=== PATIENT | female | born 1980 | race Hispanic/Latino ===

== ENCOUNTER 2017-09-10 18:05 | Emergency (ER) | payer OTHER ==
[2017-09-10 18:34] LABS: Absolute Lymphocytes (CBC) 1.9 K/uL (0.7-4.9); Absolute Monocytes 0.6 K/uL (0.1-1.3); Absolute Neutrophil 5.1 K/uL (1.8-8.0); Basophils % 0.3 % (0-1.3); Eosinophils % 1.9 % (0-4.4); Hematocrit 29.6 % (36.0-45.0); Lymphocytes % 24.2 % (15.3-44.8); MCH 31.7 pg (27.0-35.0); MCV 91.2 fL (80-100); MPV 8.8 fL (7.6-11.3); Monocytes % 7.9 % (3.3-12.3); RBC Red Blood Cell Count 3.25 M/uL (3.86-4.86)
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
--- NOTE | 2017-09-10 18:40 | EDPHYS ---
Physician Documentation [facility] Name: Maritza Marcano Age: 37 yrs Sex: Female : 1980 Arrival Date: 09/10/2017 Time: 18:09 Bed 4 Private MD: out of town, doctor ED Physician Chapo Arellano HPI: 09/10 18:16 This 37 yrs old Female presents to ER via Unassigned with complaints of 19 sarahy weeks , heavy vaginal bleeding. 18:16 The patient presents with abdominal pain in the lower abdomen, abdominal distention in sarahy the lower abdomen. Onset: The symptoms/episode began/occurred just prior to arrival. The patient presents to the emergency department with vaginal bleeding, that is heavy. The estimated gestational age is 19 weeks. course: care: private OB physician. Previous pregnancies: in previous pregnancies patient has had vaginal delivery. Associated signs and symptoms: The patient has no apparent associated signs or symptoms. Associated signs and symptoms: none. METAL WELDER: 18:16 3, Full Term 2, Premature 0, 0, Living 0 sarahy 18:30 3, Full Term 3, Premature 0, 0, Living 3, Verified, Est Due sg Date January 2018 Historical: - Allergies: 18:30 No Known Allergies; sg - Home Meds: 18:30 Vitamin Oral [Active]; sg - PMHx: 18:30 None; sg - PSHx: 18:30 Tummy Tuck; sg - Immunization history:: Adult Immunizations up to date. - Social history:: Smoking status: Patient/guardian denies using tobacco. - Family history:: not pertinent. ROS: 18:16 Constitutional: Negative for fever, chills, and weight loss, Eyes: Negative for injury, sarahy pain, redness, and discharge, ENT: Negative for injury, pain, and discharge, Neck: Negative for injury, pain, and swelling, Cardiovascular: Negative for chest pain, palpitations, and edema, Respiratory: Negative for shortness of breath, cough, wheezing, and pleuritic chest pain, Abdomen/GI: Negative for abdominal pain, nausea, vomiting, diarrhea, and constipation, Back: Negative for injury and pain, MS/Extremity: Negative for injury and deformity, Skin: Negative for injury, rash, and discoloration, Neuro: Negative for headache, weakness, numbness, tingling, and seizure, Psych: Negative for depression, anxiety, suicide ideation, homicidal ideation, and hallucinations, Allergy/Immunology: Negative for hives, rash, and allergies, Endocrine: Negative for neck swelling, polydipsia, polyuria, polyphagia, and marked weight changes, Hematologic/Lymphatic: Negative for swollen nodes, abnormal bleeding, and unusual bruising. 18:16 : Positive for vaginal bleeding. Exam: 18:16 Constitutional: This is a well developed, well nourished patient who is awake, alert, sarahy and in no acute distress. Head/Face: Normocephalic, atraumatic. Eyes: Pupils equal round and reactive to light, extra-ocular motions intact. Lids and lashes normal. Conjunctiva and sclera are non-icteric and not injected. Cornea within normal limits. Periorbital areas with no swelling, redness, or edema. ENT: Nares patent. No nasal discharge, no septal abnormalities noted. Tympanic membranes are normal and external auditory canals are clear. Oropharynx with no redness, swelling, or masses, exudates, or evidence of obstruction, uvula midline. Mucous membranes moist. Neck: Trachea midline, no thyromegaly or masses palpated, and no cervical lymphadenopathy. Supple, full range of motion without nuchal rigidity, or vertebral point tenderness. No Meningismus. Chest/axilla: Normal chest wall appearance and motion. Nontender with no deformity. No lesions are appreciated. Cardiovascular: Regular rate and rhythm with a normal S1 and S2. No gallops, murmurs, or rubs. Normal PMI, no JVD. No pulse deficits. Respiratory: Lungs have equal breath sounds bilaterally, clear to auscultation and percussion. No rales, rhonchi or wheezes noted. No increased work of breathing, no retractions or nasal flaring. Back: No spinal tenderness. No costovertebral tenderness. Full range of motion. Skin: Warm, dry with normal turgor. Normal color with no rashes, no lesions, and no evidence of cellulitis. MS/ Extremity: Pulses equal, no cyanosis. Neurovascular intact. Full, normal range of motion. Neuro: Awake and alert, GCS 15, oriented to person, place, time, and situation. Cranial nerves II-XII grossly intact. Motor strength 5/5 in all extremities. Sensory grossly intact. Cerebellar exam normal. Normal gait. Psych: Awake, alert, with orientation to person, place and time. Behavior, mood, and affect are within normal limits. 18:16 Abdomen/GI: Inspection: gravid appearance, is noted, Bowel sounds: normal, Palpation: abdomen is soft and non-tender, nontender, Liver: no appreciated palpable abnormalities, Hernia: not appreciated. Vital Signs: 18:20 BP 142 / 98; Pulse 110 MON; Resp 20 S; Temp 97.9; Pulse Ox 96% on R/A; Pain 0/10; sg 18:30 Pulse 76 MON; sg 18:59 BP 123 / 73; Pulse 86 MON; Resp 16 S; Pulse Ox 100% on R/A; Pain 0/10; sg 18:30 Sinus Rhythm sg [place] Coma Score: 18:59 Eye Response: spontaneous(4). Verbal Response: oriented(5). Motor Response: obeys sg commands(6). Total: 15. MDM: 18:12 Patient medically screened. [facility] 18:19 Data reviewed: vital signs, nurses notes, lab test result(s), radiologic studies, sarahy ultrasound. 09/10 18:14 Order name: Quantitative Hcg [facility] 09/10 18:14 Order name: Abo/rh Typing [facility] 09/10 18:14 Order name: Basic Metabolic Panel [facility] 09/10 18:14 Order name: CBC with Diff [facility] 09/10 18:14 Order name: LFT's [facility] 09/10 18:14 Order name: Lipase [facility] 09/10 18:14 Order name: Type And Screen [facility] 09/10 18:14 Order name: US OB Limited [facility] 09/10 18:34 Order name: CBC with Automated Diff; Complete Time: 19:19 EDMT 09/10 18:52 Order name: Basic Metabolic Panel; Complete Time: 19:21 EDMT 09/10 18:52 Order name: Lipase; Complete Time: 19:21 EDMT 09/10 18:58 Order name: Liver (Hepatic) Function; Complete Time: 19:21 EDMT 09/10 19:20 Order name: HCG, Quantitative; Complete Time: 19:21 EDMT 09/10 19:21 Order name: Type and Screen; Complete Time: 19:21 EDMT 09/10 18:14 Order name: IV Saline Lock; Complete Time: 18:36 [facility] 09/10 18:14 Order name: Labs collected and sent; Complete Time: 18:36 [facility] 09/10 18:14 Order name: NPO; Complete Time: 18:36 [facility] 09/10 18:19 Order name: IV Saline Lock - Large Bore; Complete Time: 18:36 [facility] Administered Medications: Discontinued: NS 0.9% 1000 ml IV at 125 ml/hr continuous 18:36 Drug: NS 0.9% 1000 ml Route: IV; Rate: 1 bolus; Site: right wrist; sg 19:06 Follow up: Response: No adverse reaction; IV Status: Completed infusion; IV Intake: sg 1000ml 18:44 Drug: NS 0.9% 1000 ml Route: IV; Rate: 125 ml/hr; Site: left antecubital; sg 19:32 Follow up: Response: No adverse reaction; IV Status: Order to discontinue infusion lk1 19:24 Drug: NS 0.9% with KCl 20 mEq/L 1000 ml Route: IV; Rate: 125 ml/hr; Site: left lk1 antecubital; 19:32 Follow up: IV Status: Infusion continued upon transfer lk1 Point of Care Testing: Urine : 18:45 did not obtain urine specimen, pt reports 19 wk , ultrasound results indicate a sg viable Disposition: 09/10/17 18:40 Transfer ordered to [facility]. Diagnosis are Threatened - 19 weeks, viable, Anemia, unspecified, Hypokalemia. - Reason for transfer: Higher level of care. - Accepting physician is to obstetrics scrub nurse [facility]. - Condition is Fair. - Problem is new. - Symptoms have improved. Signatures: Dispatcher [employer] EDNaveed Arvizu, RN RN Chapo Pierce MD MD cha Therrien, Shelly, COMPUTER SYSTEMS SECURITY ADMINISTRATOR-C COMPUTER SYSTEMS SECURITY ADMINISTRATOR-Sarahiw Maria Victoria Lange RN RN lk1
[2017-09-10 18:52] LABS: Bicarbonate 20 mEq/L (21-31); Glucose Level 101 mg/dL (65-120); Lipase 30 U/L (22-51); Potassium 3.5 mEq/L (3.6-5.0); Sodium Level 134 mEq/L (135-145)
[2017-09-10] MEDS ORDERED: NA CHLORIDE 0.9% 2,000 ML ONE (18:56)
[2017-09-10 18:58] LABS: ALT/SGPT 17 IU/L (10-60); AST/SGOT 23 IU/L (10-42); Albumin 2.8 g/dL (3.2-5.5); Alkaline Phosphatase 71 IU/L (42-121); BUN Blood Urea Nitrogen 7 mg/dL (6-20); Bilirubin Direct 0.1 mg/dL (0-0.2); Bilirubin Total 0.3 mg/dL (0.3-1.2); Glomerular Filtration Rate > 90 mL/min (=/>90); Protein, Total 6.4 g/dL (6.0-8.3)
[2017-09-10] MEDS ORDERED: NS KCL 20MEQ 1,000 ML IV ONE (19:41)
--- NOTE | 2017-09-10 19:45 | RAD REPORT ---
EXAM DESCRIPTION: US - OB Limited - 09/10/2017 7:05 pm CLINICAL HISTORY: , vaginal bleeding. COMPARISON: None. FINDINGS: A single variable presenting gestation is identified. Heart rate normal. The estimated gestational age (EGA) is 20 weeks 2 days with an TC of01/26/2018. The placenta is grade 0, posterior in location. No placenta previa. The amniotic fluid volume is normal. IMPRESSION: 1. Single, variable gestation with an EGA of 20 weeks 2 days and an TC of the 8. 2. No acute abnormality is discerned.
--- NOTE | 2017-09-11 10:04 | EKG ---
Test Date: 2017-09-10 Test Time: 18:19:10 Bitumen Plant Operator: SWG MEASUREMENT RESULTS: Intervals: Rate: 94 AR: 104 QRSD: 96 QT: 378 QTc: 472 [place]: P: 66 AR: 104 QRS: 67 T: 35 INTERPRETIVE STATEMENTS: Sinus rhythm with short AR Otherwise normal ECG No previous ECG available for comparison Electronically Signed On 09-11-17 10:03:24 CDT by Torrey Mejias
== END 2017-09-10 19:35 | disposition short-term general hospital (02) ==
LOC: ER 18:05
DX: O20.0 Threatened abortion (principal); O99.012 Anemia complicating pregnancy, second trimester; D64.9 Anemia, unspecified; E87.6 Hypokalemia; Z3A.19 19 weeks gestation of pregnancy
CPT/HCPCS: 36415; 76815; 80048; 80076; 83690; 84702; 85025; 86850; 86900; 86901; 93005; 96360; 99285; J7030